=== PATIENT | female | born 1935 | race Caucasian/White ===

== ENCOUNTER 2016-08-12 19:12 | Emergency (ER) | payer MEDICARE, OTHER ==
[2016-08-12 19:25] VITALS: TEMP 98.1
--- NOTE | 2016-08-12 20:38 | C.PDOC ---
History Of Present Illness A 81 y/o female presents to the ER c/o high blood pressure today. Pt notes her BP at home was at 200. Pt denies any pain, headaches, nausea, vomiting, fever, chills, or any other complaints. Chief Complaint (Nursing): High Blood Pressure History Per: Patient History/Exam Limitations: no limitations Onset/Duration Of Symptoms: Hrs Current Symptoms Are (Timing): Still Present Severity: Mild Recent travel outside of the [place]: No Additional History Per: Patient Past Medical History Reviewed: Historical Data, Nursing Documentation, Vital Signs Vital Signs: Last Vital Signs Temp 98.1 F 08/12/16 19:23 Pulse 80 08/12/16 19:23 Resp 14 08/12/16 19:23 BP 171/86 H 08/12/16 19:23 Pulse Ox 98 08/12/16 20:38 - Medical History PMH: HTN, Hypothyroidism Family History: States: Unknown Family Hx - Social History Hx Alcohol Use: No Hx Substance Use: No Review Of Systems Except As Marked, All Systems Reviewed And Found Negative. Constitutional: Positive for: Other (High blood pressure). Negative for: Fever , Chills Gastrointestinal: Negative for: Nausea, Vomiting Musculoskeletal: Negative for: Other (pain) Neurological: Negative for: Headache Physical Exam - Physical Exam Appears: Non-toxic, No Acute Distress Skin: Warm, Dry Head: Atraumatic, Normacephalic Eye(s): bilateral: Normal Inspection, EOMI Cardiovascular: Rhythm Regular, No Murmur, Other (161/62 BP) Respiratory: Normal Breath Sounds, No Rales, No Rhonchi, No Wheezing Gastrointestinal/Abdominal: Soft, No Tenderness Extremity: Normal ROM, No Pedal Edema, No Deformity, No Swelling Neurological/Psych: Oriented x3, Normal Speech, Normal Cognition ED Course And Treatment O2 Sat by Pulse Oximetry: 98 (RA) Pulse Ox Interpretation: Normal Medical Decision Making Medical Decision Making: Impression: 82 y/o female c/o high blood pressure at home today Plans: -Reassess and disposition On reassessment, patient is resting comfortably, and is in no acute distress. Patient was instructed to follow up with physician/clinic in 1-2 days for further evaluation. Disposition Counseled Patient/Family Regarding: Diagnosis - Disposition Referrals: [facility] [Outside] Disposition: HOME/ ROUTINE Disposition Time: 20:36 Condition: STABLE Instructions: Diabetes Mellitus Type 1 in Adults (ED), Low Sodium Diet (ED), Hypertension (DC) Forms: Gen Discharge Inst Yoruba Print Language: BELARUSIAN - POA Present On Arrival: None - Clinical Impression Clinical Impression: Hypertension, Diabetes mellitus - Scribe Statement The provider has reviewed the documentation as recorded by the Scribe Elvin snyder All medical record entries made by the Savannahibe were at my direction and personally dictated by me. I have reviewed the chart and agree that the record accurately reflects my personal performance of the history, physical exam, medical decision making, and the department course for this patient. I have also personally directed, reviewed, and agree with the discharge instructions and disposition.
[2016-08-12 20:54] VITALS: BP 161/62; PULSE 89; RESP 19; O2SAT 97
== END 2016-08-12 20:54 | disposition home or self-care (01) ==
LOC: C.ER 19:12
DX: I10 Essential (primary) hypertension (principal); E11.9 Type 2 diabetes mellitus without complications

== ENCOUNTER 2016-08-26 14:41 | Emergency (ER) | payer MEDICARE, OTHER ==
[2016-08-26 14:49] VITALS: BMI 29.2
[2016-08-26 14:56] VITALS: BP 178/91; PULSE 84; RESP 20; TEMP 98; O2SAT 100
--- NOTE | 2016-08-26 15:42 | C.PDOC ---
History Of Present Illness Pt c/o lesion on her nose. She has seen multiple dermatologists for it and states biopsies were done and medication were prescribed with no improvement. Time Seen by Provider: 08/26/16 15:15 Chief Complaint (Nursing): Abnormal Skin Integrity History Per: Patient, Family (daughter) Onset/Duration Of Symptoms: Days (year), Worse Since (1 week?) Current Symptoms Are (Timing): Still Present Location Of Injury: Anterior: Face (nose) Severity: Moderate Additional History Per: Prior Records Past Medical History Reviewed: Historical Data, Nursing Documentation, Vital Signs Vital Signs: Last Vital Signs Temp 98 F 08/26/16 14:49 Pulse 84 08/26/16 14:49 Resp 20 08/26/16 14:49 BP 178/91 H 08/26/16 14:49 Pulse Ox 100 08/26/16 14:49 - Medical History PMH: HTN, Hypercholesterolemia, Hypothyroidism Family History: States: Unknown Family Hx - Social History Hx Alcohol Use: No Hx Substance Use: No - Immunization History Hx Tetanus Toxoid Vaccination: No Hx Influenza Vaccination: No Hx Pneumococcal Vaccination: No Review Of Systems Except As Marked, All Systems Reviewed And Found Negative. Constitutional: Negative for: Fever, Weakness ENT: Negative for: Nose Pain, Nose Discharge Cardiovascular: Negative for: Chest Pain Respiratory: Negative for: Shortness of Breath Gastrointestinal: Negative for: Vomiting, Abdominal Pain Musculoskeletal: Negative for: Neck Pain Neurological: Negative for: Weakness, Numbness, Seizures, Altered Mental Status , Headache Physical Exam - Physical Exam Appears: Non-toxic, No Acute Distress Skin: Normal Color, Warm, Dry Head: Atraumatic, Normacephalic Eye(s): bilateral: PERRL, EOMI Nose: No Epistaxis, Other (flaky/dry lesion in antrior right nostril) Oral Mucosa: Moist, No Drooling, No Trismus Throat: Normal Neck: Normal ROM, Supple Cardiovascular: Rhythm Regular Respiratory: Normal Breath Sounds, No Accessory Muscle Use Gastrointestinal/Abdominal: Soft, No Tenderness Extremity: Normal ROM Neurological/Psych: Oriented x3, Normal Speech, Normal Motor, Normal Sensation ED Course And Treatment O2 Sat by Pulse Oximetry: 100 Pulse Ox Interpretation: Normal Disposition Counseled Patient/Family Regarding: Diagnosis, Need For Followup, Rx Given - Disposition Referrals: Alejandro Esqueda MD [Medical Doctor] - Disposition: HOME/ ROUTINE Disposition Time: 15:45 Condition: STABLE Additional Instructions: Follow up with your doctor this week for further evaluation and treatment, including to re-check your blood pressure. Return to the ER if you develop worsening of symptoms or if you have any other concerns. Prescriptions: Bacitracin Ointment [Bacitracin] 1 applic TOP BID #1 tube Forms: Gen Discharge Inst Bangladeshi, General Discharge Instructions - Clinical Impression Clinical Impression: Lesion of nose
== END 2016-08-26 15:51 | disposition home or self-care (01) ==
LOC: C.ER 14:41
DX: L98.9 Disorder of the skin and subcutaneous tissue, unspecified (principal)

== ENCOUNTER 2018-06-02 16:19 | Emergency (ER) | payer MEDICARE, OTHER ==
[2018-06-02 16:20] VITALS: BMI 29.2
--- NOTE | 2018-06-02 17:03 | C.PDOC ---
History Of Present Illness 82 years old female presents to ED for complaints of intermittent mid abdominal pain associated with constipation that began at 4 hours ago. Patient states last ting seen in ER was for similar complaints and she was diagnosed with constipation. Patient states bowel movement this morning but strained a lot. Denies any pain currently, nausea, diarrhea, or any other physical complaints. Time Seen by Provider: 06/02/18 16:33 Chief Complaint (Nursing): Abdominal Pain History Per: Patient History/Exam Limitations: no limitations Onset/Duration Of Symptoms: Hrs, Intermittent Episodes Current Symptoms Are (Timing): Gone Pain Scale Rating Of: 0 Location Of Pain/Discomfort: Diffuse Radiation Of Pain To:: None Associated Symptoms: Constipation. denies: Fever, Chills, Nausea, Vomiting, Diarrhea Exacerbating Factors: None Alleviating Factors: None Last Bowel Movement: Today Recent travel outside of the [place]: No Additional History Per: Patient (reports that she currently feels normal) Abnormal Vaginal Bleeding: No Past Medical History Reviewed: Historical Data, Nursing Documentation, Vital Signs Vital Signs: Last Vital Signs Temp 98.7 F 06/02/18 16:35 Pulse 88 06/02/18 16:35 Resp 20 06/02/18 16:35 BP 184/82 H 06/02/18 16:35 Pulse Ox 98 06/02/18 16:35 - Medical History PMH: HTN, Hypercholesterolemia, Hypothyroidism Family History: States: Unknown Family Hx - Social History Hx Alcohol Use: No Hx Substance Use: No - Immunization History Hx Tetanus Toxoid Vaccination: No Hx Influenza Vaccination: No Hx Pneumococcal Vaccination: No Review Of Systems Except As Marked, All Systems Reviewed And Found Negative. Constitutional: Negative for: Fever, Chills Gastrointestinal: Positive for: Abdominal Pain. Negative for: Nausea, Vomiting, Diarrhea, Constipation Skin: Negative for: Rash Neurological: Negative for: Weakness, Numbness Physical Exam - Physical Exam Appears: Non-toxic, No Acute Distress Skin: Normal Color, Warm, Dry, No Rash Head: Atraumatic, Normacephalic Eye(s): bilateral: Normal Inspection, PERRL, EOMI Oral Mucosa: Moist Neck: Normal ROM, Supple Chest: Symmetrical, No Tenderness Cardiovascular: Rhythm Regular, No Murmur Respiratory: Normal Breath Sounds, No Rales, No Rhonchi, No Wheezing Gastrointestinal/Abdominal: Bowel Sounds (Active ), Soft, No Tenderness Extremity: Normal ROM Extremity: Bilateral: Atraumatic, Normal Color And Temperature, Normal ROM Pulses: Left Radial: Normal, Right Radial: Normal Neurological/Psych: Oriented x3, Normal Speech Gait: Steady ED Course And Treatment O2 Sat by Pulse Oximetry: 98 (RA) Pulse Ox Interpretation: Normal Medical Decision Making Medical Decision Making: Plan: * Glucose labs OBstru series shows (+) constipation. On re-exam, the patient reports she feels well and has no symptoms as this time . Lungs are CTA, heart is RRR, abdomen is soft, non-tender and tolerating PO well. Ambulatory in the ED with steady gait. Follow up with the medical doctor within 1-2 days. Return if worsened. Disposition - Disposition Referrals: Alejandro Esqueda MD [Medical Doctor] - Disposition: HOME/ ROUTINE Disposition Time: 17:59 Condition: GOOD Additional Instructions: Follow up with the medical doctor within 1-2 days. Return if worsened. Prescriptions: Polyethylene Glycol 3350 [Miralax] 17 gm PO DAILY PRN #100 ml PRN Reason: Constipation Instructions: Constipation, Adult (DC) Forms: [employer] (Citizen Of [place]) Print Language: DJIBOUTIAN - Clinical Impression Clinical Impression: Constipation - PA / OUTSIDE SALES ACCOUNT REPRESENTATIVE / Resident Statement MD/DO has reviewed & agrees with the documentation as recorded. - Scribe Statement The provider has reviewed the documentation as recorded by the Scribannalisa Bustillo All medical record entries made by the Savannahibannalisa were at my direction and personally dictated by me. I have reviewed the chart and agree that the record accurately reflects my personal performance of the history, physical exam, medical decision making, and the department course for this patient. I have also personally directed, reviewed, and agree with the discharge instructions and disposition.
[2018-06-02 18:34] VITALS: BP 178/79; PULSE 86; RESP 17; TEMP 98.4
--- NOTE | 2018-06-03 13:53 | RAD ---
Date of service: 06/02/2018 PROCEDURE: Radiographs of the chest and abdomen (obstructive series) HISTORY: Constipation COMPARISON: No prior. TECHNIQUE: AP radiograph of the chest, with upright and supine radiographs of the abdomen. FINDINGS: CHEST: Lungs: The lungs are well inflated and clear. Cardiovascular: Normal size heart. No pulmonary vascular congestion. No aortic atherosclerotic calcification present Pleura: No pleural fluid. No pneumothorax. Other findings: None. ABDOMEN AND PELVIS: Bowel: There is large amount of stool in the colon. The bowel gas pattern is nonspecific. No bowel obstruction. Free air: None. Bones: Unremarkable. Other findings: There are multiple small phleboliths in the pelvis IMPRESSION: Constipation. Nonobstructive bowel gas pattern. Clear lungs.
[2018-06-05 00:51] VITALS: O2SAT 98
== END 2018-06-02 18:31 | disposition home or self-care (01) ==
LOC: C.ER 16:19
DX: K59.00 Constipation, unspecified (principal); I10 Essential (primary) hypertension; E78.00 Pure hypercholesterolemia, unspecified; E03.9 Hypothyroidism, unspecified